=== PATIENT | male | born 1995 | race Caucasian/White ===

== ENCOUNTER 2019-01-21 12:00 | Day surgery (SDC) | payer OTHER ==
[~2019-01-21 12:00] MED LIST: ACETAMINOPHEN 1,000 MG/100 ML BTL IVPB ONE; CEFAZOLIN 2 Gram 2 GM/50 ML BAG IVPB ONE
[2019-01-21] MEDS ORDERED: FENTANYL PF 100MCG/2ML VIAL IV ONE (12:01)
[2019-01-21] MEDS ORDERED: DEXAMETHASONE 4 MG/ML 1ML VIAL IVP ONE ×2 (12:01)
[2019-01-21] MEDS ORDERED: MIDAZOLAM HCL 2MG/2ML VIAL IV ONE (12:01)
[2019-01-21] MEDS ORDERED: LIDOCAINE 2% MDV (20MG/ML) 20ML VIAL IV ONE (12:01)
[2019-01-21] MEDS ORDERED: PROPOFOL 10 MG/ML VIAL IV ONE (12:01)
[2019-01-21] MEDS ORDERED: GLYCOPYRROLATE 0.2 MG/ML ML IV ONE (12:01)
[2019-01-21] MEDS ORDERED: KETOROLAC 30 MG/ML VIAL IVP ONE (12:01)
[2019-01-21] MEDS ORDERED: ROPIVACAINE HCL (NAROPIN) /PF 5MG/ML 20ML VIAL IV ONE (12:01)
[2019-01-21] MEDS ORDERED: ONDANSETRON HCL IV 4 MG/2 ML VIAL IVP ONE (12:01)
[2019-01-21] MEDS ORDERED: DESFLURANE 240 ML BTL INH ONE (12:01)
[2019-01-21] MEDS ORDERED: RINGERS SOLUTION,LACTATED 1,000 ML IV ONE ×2 (14:05→14:30)
--- NOTE | 2019-01-22 11:51 | Operative Note ---
DATE OF SURGERY: 01/21/2019 PREOPERATIVE DIAGNOSIS: Displaced bimalleolar ankle fracture on the right. POSTOPERATIVE DIAGNOSIS: Displaced bimalleolar ankle fracture on the right. OPERATION: 1. Open reduction and internal fixation of medial and lateral malleolus of the right ankle. 2. Interpretation of intraoperative fluoroscopic x-rays of the ankle x3. STAFF SURGEON: Dereck Pearl MD ANESTHESIA: General. PREPARATION: Chloraprep. INDIVIDUAL CONSIDERATIONS: None. PROCEDURE: The patient was taken to the operating room, placed supine on the operating room table. He had a successful induction of a general anesthetic. His right leg was prepped and draped in the usual fashion. The lateral side was operated on first. He had about a 12-14 cm incision starting from the tip of the lateral malleolus and the longest shaft of the fib. The limb was elevated, tourniquet was inflated to 250 mm prior. Sharp dissection carried down through skin and subcutaneous tissue. Small veins were coagulated with a Bovie. Once down to the fracture, he had a short spiral oblique fracture at the level of the joint line and spiraling proximally with an intact syndesmosis. There was clot debris and periosteum within the fracture site. This was all irrigated out. It was held and anatomically reduced with clamps, and I then placed in lag fashion a single 3.5 cortical screw for fixation. I then took a pre-bent Jorge and Nephew fibular locking plate and held it laterally. I was able to fill 3 proximal screws and 3 distal screws. The proximal screws were bicortical 3.5 corticals and the 3 distal screws were 3.5 locking screws. This gave excellent anatomic osteosynthesis as verified by fluoroscopy. The patient had about a 4 cm wound over the medial malleolus. Again, skin was infiltrated with 0.5% Marcaine with epinephrine prior. Sharp dissection carried down through skin and subcutaneous tissue. Small veins were coagulated with a Bovie. The patient had an avulsion fracture at the level of the joint line. There was periosteum within the fracture site. Clot, debris, periosteum were irrigated and removed with a pick and Ron[place]ur. I then held and anatomically reduced with a clamp and then placed guide pins for the 4.0 cannulated screws and placed 2 cannulated screws across it for anatomic fixation as again verified by fluoroscopy. The talus was now stable in the mortise and the x-rays which were 3 views of the ankle showed the talus to be anatomically reduced. After irrigation in both wounds, I just closed them with interrupted 3-0 nylon in a vertical mattress fashion and sterile bulky compressive Arguello type dressing was applied with a boot. He was taken back to recovery in good condition. There were no complications. KASSY
== END 2019-01-21 17:07 | disposition home or self-care (01) ==
LOC: SUR 12:00
PROVIDERS: ATTEND Orthopaedic Surgery
DX: S82.841A Displaced bimalleolar fracture of right lower leg, initial encounter for closed fracture (principal)
CPT/HCPCS: 76942; C1713; J1885; J2405; J7120